=== PATIENT | male | born 1980 | race Caucasian/White ===

== ENCOUNTER 2021-09-26 23:30 | Emergency (ER) | payer BC, MEDICAID, SELFPAY ==
--- NOTE | 2021-09-26 23:25 | ECG_ITS ---
APPROVED REPORT Exam: Resting ECG HR:93 bpm ECG Measurements Heart Rate 93 AXES TN 128 P 24 QRSd 96 QRS 11 QT 354 T 49 QTc 440 Conclusion Normal sinus rhythm Normal ECG Electronically signed by : Elie Rojas MD 09/27/2021 19:55:09
[2021-09-26 23:30] VITALS: BP 136/89; PULSE 93; RESP 16; TEMP 36.8; O2SAT 96; BMI 40.6
[2021-09-26 23:31] VITALS: BMI 40.6
--- NOTE | 2021-09-26 23:32 | XR_ITS ---
PROCEDURE INFORMATION: Exam: XR Chest Exam date and time: 09/26/2021 11:32 PM Age: 41 years old Clinical indication: Sternal or substernal pain; Additional info: Cp TECHNIQUE: Imaging protocol: XR of the chest. Views: 2 views. COMPARISON: No relevant prior studies available. FINDINGS: Lungs: Unremarkable. No consolidation. Pleural spaces: Unremarkable. No pleural effusion. No pneumothorax. Heart/Mediastinum: Unremarkable. No cardiomegaly. Bones/joints: Unremarkable. IMPRESSION: No acute findings.
[2021-09-26 23:47] LABS: Basophils # 0.3 K/mm3 (0-0.2); Basophils % 2.2 % (0.1-2.0); Eosinophils # 0.1 K/mm3 (0.0-0.4); Eosinophils % 0.8 % (0.1-12.0); Hematocrit 46.5 % (42.0-52.0); Lymphocytes # 4.1 K/mm3 (0.7-4.5); Lymphocytes % 32.9 % (10-50); Mean Corpuscular HGB Conc 32.2 g/dL (31.8-35.4); Mean Corpuscular Hemoglobin 28.1 pg (27.0-31.2); Mean Corpuscular Volume 87.2 fl (80-94); Mean Platelet Volume 8.8 fl (7.4-10.4); Monocytes # 0.6 K/mm3 (0.1-1.0); Monocytes % 4.6 % (1.7-9.3); Neutrophils # 7.4 K/mm3 (1.8-7.8); Neutrophils % 59.5 % (37.0-80.0); Platelet Count 337 K/mm3 (142-424); Red Blood Count 5.33 M/mm3 (4.60-6.20); Red Cell Distribution Width 14.2 % (11.5-17.5); White Blood Count 12.3 K/mm3 (4.8-10.8)
[2021-09-26 23:51] LABS: Chloride 100 mmol/L (98-107); Sodium 139 mmol/L (136-145)
[2021-09-26 23:52] LABS: Potassium 3.8 mmoL/L (3.5-5.1)
[2021-09-26 23:54] LABS: Coronavirus 19, PCR Not Detected (NotDetected); Influenza A, PCR Not Detected (NotDetected); Influenza B, PCR Not Detected (NotDetected)
[2021-09-26 23:54] LABS: Alanine Aminotransferase 37 U/L (12-78); Alkaline Phosphatase 70 U/L (38-126); Anion Gap 12.8 mEq/L (5-15); Aspartate Amino Transferase 31 U/L (17-59); Bilirubin,Direct 0.2 mg/dl (0.0-0.4); Bilirubin,Indirect 0.1 mg/dL (0.0-0.9); Bilirubin,Total 0.3 mg/dl (0.2-1.3); Bilirubin,Unconjugated 0.1 mg/dL (0.0-1.1); Blood Urea Nitrogen 22 mg/dl (9-20); Carbon Dioxide 30 mmol/L (22.0-30.0); Creatinine Clearance Estimated 183 mL/min (50-200); Estimated Glomerular Filt Rate 82 ml/min (>60); GFR (African American) 99 ML/MIN (>60)
[2021-09-26 23:55] LABS: Albumin Level 4.8 g/dl (3.5-5.0); Calcium 9.8 mg/dl (8.4-10.2); Glucose 163 mg/dl (74-100); Total Protein,Serum 8.4 g/dl (6.3-8.2)
[2021-09-26 23:59] LABS: C-Reactive Protein 13.6 mg/L (0-4)
[2021-09-27] VITALS: BP 113/80; PULSE 96; RESP 14; O2SAT 95
[2021-09-27 00:04] LABS: NT Pro Brain Natriuretic Pep. < 11.1 pg/mL (0-125)
[2021-09-27 00:12] LABS: Troponin I < 0.01 ng/ml (0.00-0.034)
[2021-09-27 00:13] LABS: Procalcitonin 0.076 ng/mL (0.0-2.0)
[2021-09-27 00:18] LABS: Erythrocyte Sedimentation Rate 8 mm/hr (0-15)
--- NOTE | 2021-09-27 00:56 | HMH.EDCP ---
ED Disposition Clinical Impression: Chest pain Qualifiers: Chest pain type: unspecified Qualified Code(s): R07.9 - Chest pain, unspecified Disposition: Home, Self-Care Condition on Discharge: Good Instructions: DI for Atypical Chest Pain Additional Instructions: see pcp for follow up and consider stress test Referrals: Bro Aviles [Primary Care Provider] - - Critical Care Critical Care Time: No Attestation: On 09/26/21, the high probability of a clinically significant, sudden or life threatening deterioration of the following system(s) required my full and direct attention, intervention and personal management. The time I documented below is in addition to time spent performing reported procedures but includes the following listed in this critical care notation. Medical Decision Making - Medical Records Medical records reviewed: Yes: I reviewed the patient's medical records. - Stef Inquiry Pt receiving controlled substance: No Vital Signs: 09/26/21 23:30 09/27/21 00:00 Temperature 98.3 F Temperature Source Oral Pulse Rate 96 H Pulse Rate [Right] 93 H Respiratory Rate 16 14 Blood Pressure 113/80 Blood Pressure [Right Arm] 136/89 Blood Pressure Mean [Right Arm] 104 02 Sat by Pulse Oximetry 96 95 Oxygen Delivery Method Room Air - Lab Data Lab results reviewed: Yes: I reviewed the patient's lab results. Lab Results 09/26/21 23:30: ESR 8 09/26/21 23:30: Troponin I < 0.01, C-Reactive Protein 13.6 H, Procalcitonin 0.076 09/26/21 23:30: WBC 12.3 H, RBC 5.33, Hgb 15.0, Hct 46.5, MCV 87.2, MCH 28.1, MCHC 32.2, RDW 14.2, Plt Count 337, MPV 8.8, Neut % (Auto) 59.5, Lymph % (Auto) 32.9, Ada % (Auto) 4.6, Eos % (Auto) 0.8, Baso % (Auto) 2.2 H, Neut # (Auto) 7.4, Lymph # (Auto) 4.1, Ada # (Auto) 0.6, Eos # (Auto) 0.1, Baso # (Auto) 0.3 H 09/26/21 23:30: Sodium 139, Potassium 3.8, Chloride 100, Carbon Dioxide 30, Anion Gap 12.8, BUN 22 H, Creatinine 1.00, Estimated Creat Clear 183, Estimated GFR 82, Est GFR ( Amer) 99, Glucose 163 H, Calcium 9.8, Total Bilirubin 0.3, Direct Bilirubin 0.2, Conjugated Bilirubin 0.0, Indirect Bilirubin 0.1, Unconjugated Bilirubin 0.1, AST 31, ALT 37, Alkaline Phosphatase 70, NT-Pro-B Natriuret Pep < 11.1, Total Protein 8.4 H, Albumin 4.8 09/26/21 23:40: SARS-CoV-2 (PCR) Not detected, Influenza A Untype (PCR) Not detected, Influenza Type B (PCR) Not detected Result diagrams: 09/26/21 23:30 09/26/21 23:30 Orders (Tests/Meds): ED MEDICATIONS Generic Name Dose Route Start Last Admin Trade Name Freq PRN Reason Stop Dose Admin Sodium Chloride 1,000 mls @ 999 mls/hr 09/26/21 23:45 09/26/21 23:46 Sod Chlor 0.9% 1000ml Bag IV 09/27/21 00:45 999 mls/hr .Q1H1M LANDEN Administration Discontinued Medications Generic Name Dose Route Start Last Admin Trade Name Freq PRN Reason Stop Dose Admin Acetaminophen 1,000 mg 09/27/21 00:31 09/27/21 00:37 Acetaminophen 500mg Tab PO 09/27/21 00:32 1,000 mg ONCE ONE Administration Aspirin 324 mg 09/26/21 23:37 09/26/21 23:46 Aspirin 81mg Chewable Tablet PO 09/26/21 23:38 324 mg ONCE ONE Administration ORDERS Category Date Time Status Troponin I Q3H Lab 09/27/21 02:45 Ordered Troponin I Q3H Lab 09/27/21 05:45 Ordered - Radiology Data #1 Image(s): Chest Image Reviewed: Yes I have reviewed radiologist's interpretation Preliminary Findings: Normal/NAD - ECG Data Tracing #1 Normal Sinus Rhythm: Yes Ischemic changes: non-specific ST-T wave changes Medical Decision Narrative: feeling ok and has stable exam and labs will ask pt to call obesity dr and also pcp for stress test Chest Pain HPI - General Chief Complaint: Chest Pain Stated Complaint: CP Time Seen by Provider: 09/27/21 00:00 Mode of Arrival: Ambulatory Source of Information: Patient, Medical Record Limitations: No Limitations Description of Symptoms (Recalled from ER Triage Doc. by RN): pt c/o being
--- NOTE | 2021-09-27 01:05 | PC.NURSE ---
Dr. Arnold s/w Dr. Moses
[2021-09-27 01:12] VITALS: BP 135/90; PULSE 78; RESP 18; TEMP 36.8; O2SAT 98
[2021-09-27 01:14] VITALS: BP 135/99; PULSE 90; RESP 16; TEMP 36.8; O2SAT 95
== END 2021-09-27 01:24 | disposition home or self-care (01) ==
PROVIDERS: Emergency Provider Emergency Medicine; PCP Family Medicine
DX: R07.9 Chest pain, unspecified (principal); Z20.822 Contact with and (suspected) exposure to COVID-19; I10 Essential (primary) hypertension; Z88.0 Allergy status to penicillin
CPT/HCPCS: 71046; 80048; 80076; 83880; 84145; 84484; 85025; 85651; 86140; 93005; 96365; 99283; C9803; U0003; U0005

== ENCOUNTER 2021-10-17 09:33 | Emergency (ER) | payer BC, MEDICAID, SELFPAY ==
[2021-10-17 09:34] VITALS: BP 134/101; PULSE 80; RESP 16; TEMP 37.1; O2SAT 97; BMI 39.5
[2021-10-17 10:01] VITALS: BMI 39.5
[2021-10-17 10:14] VITALS: BP 134/101; PULSE 72; O2SAT 96
[2021-10-17 10:30] VITALS: BP 133/101; PULSE 67; O2SAT 97
--- NOTE | 2021-10-17 10:55 | HMH.EDHA ---
ED Disposition Clinical Impression: Migraine Qualifiers: Migraine type: unspecified Status migrainosus presence: without status migrainosus Intractability: not intractable Qualified Code(s): G43.909 - Migraine, unspecified, not intractable, without status migrainosus Disposition: Home, Self-Care Condition on Discharge: Good Additional Instructions: follow up pcp, return for worse Prescriptions: Prochlorperazine Maleate [Compazine] 10 mg PO Q8 PRN #15 tab PRN Reason: Headache Transmission Status: [id number] Referrals: Bro Aviles [Primary Care Provider] - - Critical Care Critical Care Time: No Attestation: On 10/17/21, the high probability of a clinically significant, sudden or life threatening deterioration of the following system(s) required my full and direct attention, intervention and personal management. The time I documented below is in addition to time spent performing reported procedures but includes the following listed in this critical care notation. Medical Decision Making - Medical Records Medical records reviewed: Yes: I reviewed the patient's medical records. - Stef Inquiry Pt receiving controlled substance: No Vital Signs: 10/17/21 09:34 10/17/21 10:14 10/17/21 10:30 Temperature 98.8 F Temperature Source Oral Pulse Rate 72 67 Pulse Rate [Right Radial] 80 Respiratory Rate 16 Blood Pressure 134/101 H 133/101 H Blood Pressure [Right Arm] 134/101 H Blood Pressure Mean [Right Arm] 112 Blood Pressure Source [Right Arm] Automatic Cuff Blood Pressure Position [Right Arm] Sitting 02 Sat by Pulse Oximetry 97 96 97 Oxygen Delivery Method Room Air Orders (Tests/Meds): ED MEDICATIONS Discontinued Medications Generic Name Dose Route Start Last Admin Trade Name Freq PRN Reason Stop Dose Admin Acetaminophen 1,000 mg 10/17/21 10:55 10/17/21 11:04 Acetaminophen 500mg Tab PO 10/17/21 10:56 1,000 mg ONCE ONE Administration Ketorolac Tromethamine 30 mg 10/17/21 10:24 10/17/21 11:04 Ketorolac 30mg/Ml Vial IV 10/17/21 10:25 30 mg ONCE ONE Administration Metoclopramide HCl 10 mg 10/17/21 10:55 10/17/21 11:05 Metoclopramide Hcl 10mg/2ml Vial IVP 10/17/21 10:56 10 mg ONCE ONE Administration Ondansetron HCl 4 mg 10/17/21 10:24 10/17/21 11:04 Ondansetron 4mg/2ml Vial IV 10/17/21 10:25 4 mg ONCE ONE Administration Medical Decision Narrative: reeval, neuro intact, feels better, appears well, ok with plan to rx and f/u pcp Headache HPI - General Chief Complaint: Headache Stated Complaint: migraine Time Seen by Provider: 10/17/21 10:30 Mode of Arrival: Ambulatory Limitations: No Limitations Description of Symptoms (Recalled from ER Triage Doc. by RN): Pt c/o migraine with light sensativity and nausea. Onset approx 1900 last night - History of Present Illness HPI Narrative: c/o migraine sim to prior frontal, assoc with nausea and light sens MD Complaint: migraine Location: frontal Severity: moderate Relieving factors: dark room Exacerbating factors: light Associated symptoms: nausea - Related Data Home Medications Medication Instructions Recorded Confirmed Certolizumab Pegol [Cimzia] 400 mg SQ DIRECTED 09/27/21 09/27/21 Lisinopril/Hydrochlorothiazide 1 tab PO DAILY 09/27/21 09/27/21 [Lisinopril-Hctz 20-12.5 mg Tab*] Testosterone Cypionate 200 mg SQ DIRECTED 09/27/21 09/27/21 Previous Rx's Medication Instructions Recorded Prochlorperazine Maleate 10 mg PO Q8 PRN #15 tab 10/17/21 [Compazine] Allergies Allergy/AdvReac Type Severity Reaction Status Date / Time Penicillins Allergy Verified 09/26/21 23:31 [facility] History - Hepatitis A Screen Drug use history?: No High risk sexual behaviors?: No History of sexually transmitted infection?: No Currently employed?: No Childcare worker?: No Do you have indoor plumbing?: Yes Do you have electricity?: Yes Attes
[2021-10-17 11:32] VITALS: BP 163/110; PULSE 82; RESP 18; TEMP 37.1; O2SAT 97
== END 2021-10-17 11:35 | disposition home or self-care (01) ==
PROVIDERS: Emergency Provider Emergency Medicine; PCP Family Medicine
DX: G43.909 Migraine, unspecified, not intractable, without status migrainosus (principal)
CPT/HCPCS: 96374; 96375; 99282; J2405

== ENCOUNTER 2022-03-15 12:26 | Emergency (ER) | payer OTHER, SELFPAY ==
[2022-03-15 12:27] VITALS: BP 151/95; PULSE 80; RESP 18; TEMP 36.7; O2SAT 98; BMI 39.5
--- NOTE | 2022-03-15 12:52 | XR_ITS ---
FINAL REPORT CLINICAL HISTORY: injury the right hip a couple days ago. still having pain. FINDINGS: 2 views of the right hip and an AP pelvis were obtained. There is no acute fracture or dislocation. There is mild degenerative change of the right hip. There are no soft tissue abnormalities. IMPRESSION: No acute process. Reviewed, Interpreted and Dictated by Dusty Duff III, MD Transcribed by [facility] Authenticated and [facility]
--- NOTE | 2022-03-15 12:59 | PC.NURSE ---
notified rad of xray order, spoke with shayan
--- NOTE | 2022-03-15 13:04 | HMH.EDGENADL ---
ED Disposition Clinical Impression: Strain of right hip Qualifiers: Encounter type: initial encounter Qualified Code(s): S76.011A - Strain of muscle, fascia and tendon of right hip, initial encounter Disposition: Home, Self-Care Condition on Discharge: Good Instructions: DI for Hip Pain Additional Instructions: Rest. Prednisone as prescribed. Linden as needed for pain. Follow-up with orthopedics if not improved by Sunday. Additional instructions for CONTROLLED SUBSTANCES: You have been prescribed a medication that is a controlled substance. Controlled substances include pain medications known as opiates and sedative nerve medications known as benzodiazepines. Tramadol, fioricet, and gabapentin are also controlled substances. Some common opiates include: Codeine (such as Tylenol #3) Hydrocodone (Vicodin, Lortab, Lorcet, Linden) Oxycodone (Percocet, Percodan, Oxycodone, Oxy IR) Some common benzodiazepines include: Diazepam (Valium) Lorazepam (Ativan) Alprazolam (Xanax) Clonazepam (Klonopin) Oxazepam (Serax) All of these controlled substances are highly addictive and frequently abused. Misuse can and frequently does lead to addiction as well as overdose and . Medication should be stored in a locked cabinet or other secure storage unit. Do not store the medication in a motor vehicle. Short term supplies, 3 days or less, are prescribed because of the highly addictive nature of the medication. Any of the controlled substance medication NOT taken should be disposed of properly and NOT SAVED. The recommended method of disposing of unused medications is: Place the medicines in a sealable plastic bag. If the medicine is a solid, crush it or add water to dissolve it. Add something undesirable (cat litter, coffee grounds, etc.) Dispose of sealed bag in household trash Do not flush or pour unused medicines down a sink or drain. Controlled substances should not be shared, given away or sold. Because of the addictive nature and frequent abuse, these medications are sometimes stolen. These medications should be kept in a safe place where they cannot be stolen. Do not keep them in your car or purse. Lost or stolen prescriptions for controlled substances WILL NOT BE REFILLED in this emergency department, regardless of whether a police report was filed. Prescriptions: Hydrocod/Acet 5/325 mg [Linden 5/325mg tablet] 1 tab PO Q6HP PRN #10 tab PRN Reason: Pain Transmission Status: [id number] predniSONE [Prednisone 20mg Tab] 20 mg PO BID #10 tab Transmission Status: Re[facility] by [id number] Referrals: Bro Aviles [Primary Care Provider] - Forms: Work/School Release - Critical Care Critical Care Time: No Attestation: On 03/15/22, the high probability of a clinically significant, sudden or life threatening deterioration of the following system(s) required my full and direct attention, intervention and personal management. The time I documented below is in addition to time spent performing reported procedures but includes the following listed in this critical care notation. Medical Decision Making - Stef Inquiry Pt receiving controlled substance: Yes Stef was queried for this patient: Yes Risks and benefits of using a controlled substance: were discussed with pt by me Vital Signs: 03/15/22 12:27 Temperature 98.0 F Temperature Source Oral Pulse Rate [Right Radial] 80 Respiratory Rate 18 Blood Pressure [Right Arm] 151/95 H Blood Pressure Mean [Right Arm] 113 Blood Pressure Source [Right Arm] Automatic Cuff Blood Pressure Position [Right Arm] Sitting 02 Sat by Pulse Oximetry 98 Oxygen Delivery Method Room Air Orders (Tests/Meds): ED MEDICATIONS Discontinued Medications Generic Name Dose Route Start Last Admin Trade Name Freq PRN Reason Stop Dose Admin Dexamethasone Sodium Phosphate 10 mg 03/15/22 13:30 03/15/22 14:03 Dexamethasone 4mg/M
--- NOTE | 2022-03-15 13:04 | PC.NURSE ---
pt in xray
--- NOTE | 2022-03-15 13:10 | PC.NURSE ---
BARRERA SY at
--- NOTE | 2022-03-15 14:13 | PC.NURSE ---
waiting shot time for pt d/c
--- NOTE | 2022-03-15 14:42 | PC.NURSE ---
awaiting workmans comp paperwork filled out by
[2022-03-15 15:00] VITALS: BP 142/87; PULSE 84; RESP 18; TEMP 36.7; O2SAT 99
== END 2022-03-15 15:01 | disposition home or self-care (01) ==
PROVIDERS: Emergency Provider Emergency Medicine; PCP Family Medicine
DX: S76.011A Strain of muscle, fascia and tendon of right hip, initial encounter (principal); Y35.811A Legal intervention involving manhandling, law enforcement official injured, initial encounter; Y92.69 Other specified industrial and construction area as the place of occurrence of the external cause; Y99.0 Civilian activity done for income or pay
CPT/HCPCS: 73502; 96372; 99283; J2405

== ENCOUNTER 2022-08-12 19:17 | Emergency (ER) | payer BC, MEDICAID, SELFPAY ==
[2022-08-12 19:37] VITALS: BP 167/106; PULSE 106; RESP 18; TEMP 36.7; O2SAT 97; BMI 39.5
--- NOTE | 2022-08-12 19:50 | XR_ITS ---
PROCEDURE INFORMATION: Exam: XR Bilateral Hips Exam date and time: 08/12/2022 7:56 PM Age: 42 years old Clinical indication: Hip pain; Right hip; Additional info: Hip pain right side TECHNIQUE: Imaging protocol: Radiologic exam of the bilateral hips. Views: 2 views of hips with pelvis when performed. COMPARISON: No relevant prior studies available. FINDINGS: Bones/joints: No fracture. Hip joints are well aligned. Hip joint spaces and articular surfaces are grossly well-maintained, with minimal superolateral acetabular spurring on the right. No radiographic evidence to suggest transient osteoporosis or avascular necrosis. Somewhat ill-defined 13 mm osteoblastic lesion projecting over the central medullary space in the subtrochanteric distribution of the right proximal femur. This is unchanged from right hip radiograph 03/15/2022, which would tend to favor an incidental bone island or possibly an involuted fibro-osseous lesion such as fibrous dysplasia. Bone scan or MRI may be helpful to further confirm benign features given the persistent right hip pain symptoms. The SI joints are unremarkable. The pubic symphysis is unremarkable. Soft tissues: No gross soft tissue abnormalities. Other findings: No gross sacrococcygeal abnormalities. IMPRESSION: 1. No acute findings. 2. Minimal osteoarthritic change in the right hip. 3. Somewhat ill-defined 13 mm intramedullary bone lesion in the subtrochanteric right femur is unchanged and given the interval stability a benign lesion is favored. Bone scan or MRI may be helpful to further confirm benign features with greater sensitivity/specificity however given the persistent hip pain symptoms.
[2022-08-12 20:27] LABS: Basophils # 0.3 K/mm3 (0-0.2); Basophils % 1.5 % (0.1-2.0); Eosinophils # 0.2 K/mm3 (0.0-0.4); Hematocrit 48.7 % (42.0-52.0); Hemoglobin 16.1 g/dL (14.1-18.0); Lymphocytes # 4.9 K/mm3 (0.7-4.5); Lymphocytes % 29.4 % (10-50); Mean Corpuscular Hemoglobin 29.5 pg (27.0-31.2); Mean Corpuscular Volume 89.4 fl (80-94); Mean Platelet Volume 8.6 fl (7.4-10.4); Monocytes # 0.8 K/mm3 (0.1-1.0); Monocytes % 4.8 % (1.7-9.3); Neutrophils # 10.4 K/mm3 (1.8-7.8); Neutrophils % 63.3 % (37.0-80.0); Platelet Count 316 K/mm3 (142-424); Red Blood Count 5.45 M/mm3 (4.60-6.20); Red Cell Distribution Width 13.9 % (11.5-17.5); White Blood Count 16.5 K/mm3 (4.8-10.8)
[2022-08-12 20:34] LABS: Chloride 102 mmol/L (98-107); Sodium 135 mmol/L (136-145)
[2022-08-12 20:35] LABS: MANUAL DIFFERENTIAL MANUAL DIFFERENTIAL (MANUAL DIFF); Potassium 3.7 mmoL/L (3.5-5.1)
[2022-08-12 20:37] LABS: Alanine Aminotransferase 33 U/L (12-78); Albumin Level 4.5 g/dl (3.5-5.0); Albumin/Globulin Ratio 1.4 (1.1-1.8); Alkaline Phosphatase 73 U/L (38-126); Anion Gap 10.7 mEq/L (5-15); Aspartate Amino Transferase 27 U/L (17-59); Bilirubin,Total 0.3 mg/dl (0.2-1.3); Blood Urea Nitrogen 22 mg/dl (9-20); Carbon Dioxide 26 mmol/L (22.0-30.0); Creatinine Clearance Estimated 181 mL/min (50-200); Estimated Glomerular Filt Rate 81 ml/min (>60); GFR (African American) 98 ML/MIN (>60); Globulin 3.2 g/dL (1.3-3.2); Total Protein,Serum 7.7 g/dl (6.3-8.2)
[2022-08-12 20:38] LABS: Calcium 10.1 mg/dl (8.4-10.2); Glucose 224 mg/dl (74-100)
[2022-08-12 20:43] LABS: C-Reactive Protein 11.9 mg/L (0-4); Lymphocytes % 21 % (10-50); Monocytes % 6 % (2-9); Neutrophils % 68 % (42-76); Platelet Estimate Normal; RBC Morphology Normal; Total Cells Counted 100
[2022-08-12 21:03] LABS: Erythrocyte Sedimentation Rate 3 mm/hr (0-15)
--- NOTE | 2022-08-12 21:21 | HMH.EDGENADL ---
Discharge Plan Disposition Patient Disposition: Home, Self-Care Prescriptions Prescriptions: New prednisone [prednisone] 20 mg tablet 20 mg PO BID Qty: 10 0RF No Action lisinopril-hydrochlorothiazide 1 EACH tablet 1 tab PO DAILY testosterone cypionate 200 MG/ML oil 200 mg SQ DIRECTED certolizumab pegol 400 MG/2 ML syringe kit 400 mg SQ DIRECTED prochlorperazine maleate 10 MG tablet 10 mg PO Q8 PRN (Reason: Headache) Qty: 15 0RF hydrocodone-acetaminophen 1 TAB tablet 1 tab PO Q6HP PRN (Reason: Pain) Qty: 10 0RF Referrals Follow up/Referrals: Bro Aviles [Primary Care Provider] - See instructions Clinical Impressions Clinical Impression: Arthralgia Instructions Patient Instructions: DI for Acute Pain -- Adult Discharge ED Provider: Jose Arnold General Adult HPI General Chief complaint: PAIN Stated complaint: BOTH HIPS Time Seen by Provider: 08/12/22 21:21 Mode of Arrival: Ambulatory Source of Information: Patient and Medical Record Limitations: No Limitations Description of Symptoms (Recalled from ER Triage Doc. by RN): Pt c/o bilateral hip pain that began this morning. Pt states that he has a history of psoriatic arthritis but this pain is more severe than usual. C/O knot to his left hip area. Pain radiates into his groin and he is having difficulty lifting his legs without severe pain. History of Present Illness HPI narrative: has inner thigh pain bilat worse with mov since this am - has hip pain rt greater than left w/o fever or rash and no trauma - hx of same and has hx of psoriatic arthritis - Onset (ago): hour(s) Location: genitals (inner groin ) Severity: moderate Associated symptoms: denies other symptoms Related Data Home Medications Medication Instructions Recorded Confirmed certolizumab pegol 400 mg/2 mL 400 mg SQ DIRECTED Arthritis 09/27/21 09/27/21 (200 mg/mL x2) subcutaneous syringe kit lisinopril 20 1 tab PO DAILY High blood pressure 09/27/21 09/27/21 mg-hydrochlorothiazide 12.5 mg tablet testosterone cypionate 200 mg/mL 200 mg SQ DIRECTED Supplement 09/27/21 09/27/21 intramuscular oil Previous Rx's Medication Instructions Recorded prochlorperazine maleate 10 mg 10 mg PO Q8 PRN Headache #15 tabs 02/07/22 tablet hydrocodone 5 mg-acetaminophen 325 1 tab PO Q6HP PRN Pain #10 tabs 03/15/22 mg tablet prednisone 20 mg tablet 20 mg PO BID #10 tabs 08/12/22 Allergies Allergy/AdvReac Type Severity Reaction Status Date / Time Penicillins Allergy Verified 08/12/22 21:32 [facility] Disclaimer: The information contained in this section may have been updated after the patient was seen, as this information can be updated by other users. Social History Smoking Status: Never smoker alcohol intake: never current occupational status: employed Travel in the last 8 weeks: None ROS Obtained: Yes All systems reviewed & no additional complaints except as documented Physical Exam General General appearance: alert Head Head exam: normocephalic Eye Eye exam: Present PERRL and EOMI ENT ENT exam: Present mucous membranes moist Neck Neck exam: Present trachea midline Respiratory Respiratory exam: Absent respiratory distress Cardiovascular Cardiovascular exam: Present regular rate Extremities Exam Extremities exam: Present normal inspection and other (pain inner thigh with rom ) Back Exam Back exam: Absent full ROM Neurological Exam Neurological exam: Present alert, oriented X3 and CN II-XII intact Psychiatric Psychiatric exam: Present normal affect Skin Skin exam: Absent rash Medical Decision Making Medical Records Medical records reviewed: Yes I reviewed the patient's medical records. Stef Inquiry Pt receiving controlled substance: No Vital Signs: 08/12/22 19:37 Temperature 98.0 F Temperature Source Oral Pulse Rate [Apical] 106 H Respiratory Rate 18 Blood Pressure [Right Arm] 1
[2022-08-12 21:42] VITALS: BP 167/106; PULSE 106; RESP 18; TEMP 36.7; O2SAT 97
[2022-08-12 21:45] LABS: Hemoglobin A1C 7.6 % (4.0-6.0)
== END 2022-08-12 21:45 | disposition home or self-care (01) ==
PROVIDERS: Emergency Provider Emergency Medicine; PCP Family Medicine
DX: M25.552 Pain in left hip (principal); M25.551 Pain in right hip; L40.50 Arthropathic psoriasis, unspecified; Z79.52 Long term (current) use of systemic steroids; Z79.899 Other long term (current) drug therapy
CPT/HCPCS: 73521; 80053; 83036; 85007; 85025; 85651; 86140; 96372; 99284

== ENCOUNTER 2022-09-24 10:21 | Emergency (ER) | payer OTHER, MEDICAID, SELFPAY ==
--- NOTE | 2022-09-24 10:28 | EXP.UTC ---
Discharge Plan Disposition Patient Disposition: Home, Self-Care Condition: Good Prescriptions Prescriptions: New benzonatate [benzonatate] 100 mg capsule 100 mg PO TIDP PRN (Reason: Cough) Qty: 30 0RF methylprednisolone 4 mg Tablets,Dose Pack 4 mg PO DIRECTED Qty: 21 0RF cefdinir 300 mg capsule 300 mg PO BID Qty: 20 0RF No Action lisinopril-hydrochlorothiazide 1 EACH tablet 1 tab PO DAILY testosterone cypionate 200 MG/ML oil 200 mg SQ DIRECTED certolizumab pegol 400 MG/2 ML syringe kit 400 mg SQ DIRECTED prochlorperazine maleate 10 MG tablet 10 mg PO Q8 PRN (Reason: Headache) Qty: 15 0RF hydrocodone-acetaminophen 1 TAB tablet 1 tab PO Q6HP PRN (Reason: Pain) Qty: 10 0RF hydroxyzine HCl 25 mg tablet 25 mg PO DAILY Label Comments: TAKE 1 TABLET BY MOUTH NIGHTLY Farxiga 10 mg tablet 10 mg PO DAILY Label Comments: TAKE 1 TABLET BY MOUTH EVERY DAY prednisone [prednisone] 20 mg tablet 20 mg PO BID Referrals Follow up/Referrals: Bro Aviles [Primary Care Provider] - See instructions Activity Restrictions/Add. Instructions Additional Instructions/Restrictions: Drink plenty of fluids. Take tylenol or ibuprofen for pain or fever. Take the medications as directed. Follow up with your regular doctor. GO TO THE ER FOR ANY WORSENING SYMPTOMS Clinical Impressions Clinical Impression: Acute bronchitis Instructions Patient Instructions: Acute Bronchitis, DI for Acute Bronchitis Discharge ED Provider: Micheal Crews [facility] HPI General Stated complaint: SOA, congestion Time Seen by Provider: 09/24/22 10:28 History of Present Illness Provider Complaint: He states that for the past 4 days he has had chest and sinus congestion. He has a productive cough with yellowish sputum. Related Data Home Medications Medication Instructions Recorded Confirmed certolizumab pegol 400 mg/2 mL 400 mg SQ DIRECTED Arthritis 09/27/21 09/24/22 (200 mg/mL x2) subcutaneous syringe kit lisinopril 20 1 tab PO DAILY High blood pressure 09/27/21 09/24/22 mg-hydrochlorothiazide 12.5 mg tablet testosterone cypionate 200 mg/mL 200 mg SQ DIRECTED Supplement 09/27/21 09/27/21 intramuscular oil dapagliflozin 10 mg tablet 10 mg PO DAILY Diabetes 09/24/22 09/24/22 ([facility]) hydroxyzine HCl 25 mg tablet 25 mg PO DAILY Diabetes 09/24/22 09/24/22 prednisone 20 mg tablet 20 mg PO BID . 09/24/22 09/24/22 Previous Rx's Medication Instructions Recorded prochlorperazine maleate 10 mg 10 mg PO Q8 PRN Headache #15 tabs 10/17/21 tablet hydrocodone 5 mg-acetaminophen 325 1 tab PO Q6HP PRN Pain #10 tabs 03/15/22 mg tablet benzonatate 100 mg capsule 100 mg PO TIDP PRN Cough #30 caps 09/24/22 cefdinir 300 mg capsule 300 mg PO BID #20 caps 09/24/22 methylprednisolone 4 mg tablets in 4 mg PO DIRECTED #21 tabs 09/24/22 a dose pack Allergies Allergy/AdvReac Type Severity Reaction Status Date / Time Penicillins Allergy Verified 09/24/22 10:50 [facility] Disclaimer: The information contained in this section may have been updated after the patient was seen, as this information can be updated by other users. Social History Smoking Status: Never smoker alcohol intake: never current occupational status: employed Travel in the last 8 weeks: None ROS Obtained: Yes All systems reviewed & no additional complaints except as documented Constitutional Constitutional: Reports chills and Reports fever(s) Eyes Eyes: Denies eye discharge ENT Ears, Nose, Mouth, and Throat: Reports as per HPI Cardiovascular Cardiovascular: Denies chest pain Respiratory Respiratory: Denies chest congestion and Reports cough Gastrointestinal Gastrointestingal: Reports nausea; Denies abdominal pain, constipation, cramping, diarrhea or vomiting Musculoskeletal Musculoskeletal: De
[2022-09-24 10:30] VITALS: BP 143/93; PULSE 101; RESP 19; TEMP 36.7; O2SAT 98; BMI 36.9
[2022-09-24 11:24] VITALS: BP 143/93; PULSE 101; RESP 20; TEMP 36.7; O2SAT 98
== END 2022-09-24 11:23 | disposition home or self-care (01) ==
PROVIDERS: Emergency Provider Nurse Practitioner Family; PCP Family Medicine
DX: J20.9 Acute bronchitis, unspecified (principal)
CPT/HCPCS: 99212; 99213; G0463

== ENCOUNTER 2022-10-05 22:04 | Emergency (ER) | payer OTHER, MEDICAID, SELFPAY ==
[2022-10-05 22:05] VITALS: BP 164/98; PULSE 79; RESP 16; TEMP 36.6; O2SAT 98; BMI 35.6
[2022-10-05 22:22] VITALS: BMI 35.6
--- NOTE | 2022-10-05 22:23 | CT_ITS ---
PROCEDURE INFORMATION: Exam: CT Head Without Contrast Exam date and time: 10/05/2022 10:34 PM Age: 42 years old Clinical indication: Pain; Patient HX: Headache x1 week; Additional info: TIM TECHNIQUE: Imaging protocol: Computed tomography of the head without contrast. Radiation optimization: All CT scans at this facility use at least one of these dose optimization techniques: automated exposure control; mA and/or kV adjustment per patient size (includes targeted exams where dose is matched to clinical indication); or iterative reconstruction. Other protocol: This patient has received 0 known CTs and 0 known cardiac nuclear medicine studies in the 12 months prior to the current study. COMPARISON: No relevant prior studies available. FINDINGS: Brain: Normal. No hemorrhage. Unremarkable white matter. No mass effect. Cerebral ventricles: No ventriculomegaly. Paranasal sinuses: Visualized sinuses are unremarkable. No fluid levels. Mastoid air cells: Visualized mastoid air cells are well aerated. Bones/joints: Unremarkable. No acute fracture. Soft tissues: Unremarkable. IMPRESSION: No acute intracranial abnormality.
[2022-10-05 22:33] LABS: Chloride 107 mmol/L (98-107); Potassium 3.8 mmoL/L (3.5-5.1); Sodium 140 mmol/L (136-145)
[2022-10-05 22:34] LABS: Basophils # 0.1 K/mm3 (0-0.2); Eosinophils # 0.1 K/mm3 (0.0-0.4); Eosinophils % 1.2 % (0.1-12.0); Hematocrit 47.8 % (42.0-52.0); Hemoglobin 15.7 g/dL (14.1-18.0); Lymphocytes # 2.6 K/mm3 (0.7-4.5); Lymphocytes % 21.7 % (10-50); Mean Corpuscular HGB Conc 32.9 g/dL (31.8-35.4); Mean Corpuscular Hemoglobin 29.2 pg (27.0-31.2); Mean Corpuscular Volume 88.9 fl (80-94); Mean Platelet Volume 8.6 fl (7.4-10.4); Monocytes # 0.5 K/mm3 (0.1-1.0); Monocytes % 3.9 % (1.7-9.3); Neutrophils # 8.6 K/mm3 (1.8-7.8); Neutrophils % 72.2 % (37.0-80.0); Platelet Count 264 K/mm3 (142-424); Red Blood Count 5.38 M/mm3 (4.60-6.20); Red Cell Distribution Width 14.1 % (11.5-17.5); White Blood Count 11.9 K/mm3 (4.8-10.8)
[2022-10-05 22:35] LABS: Blood Urea Nitrogen 14 mg/dl (9-20); Creatinine Clearance Estimated 181 mL/min (50-200); Estimated Glomerular Filt Rate 92 ml/min (>60); GFR (African American) 111 ML/MIN (>60)
[2022-10-05 22:36] LABS: Alanine Aminotransferase 110 U/L (12-78); Albumin Level 4.2 g/dl (3.5-5.0); Albumin/Globulin Ratio 1.4 (1.1-1.8); Alkaline Phosphatase 51 U/L (38-126); Anion Gap 9.8 mEq/L (5-15); Aspartate Amino Transferase 129 U/L (17-59); Bilirubin,Total 0.6 mg/dl (0.2-1.3); Calcium 8.7 mg/dl (8.4-10.2); Carbon Dioxide 27 mmol/L (22.0-30.0); Globulin 3.1 g/dL (1.3-3.2); Glucose 145 mg/dl (74-100); Total Protein,Serum 7.3 g/dl (6.3-8.2)
--- NOTE | 2022-10-06 00:04 | HMH.EDHA ---
Discharge Plan Disposition Patient Disposition: Home, Self-Care Chief Complaint: Headache Prescriptions Prescriptions: No Action lisinopril-hydrochlorothiazide 1 EACH tablet 1 tab PO DAILY testosterone cypionate 200 MG/ML oil 200 mg SQ DIRECTED certolizumab pegol 400 MG/2 ML syringe kit 400 mg SQ DIRECTED hydroxyzine HCl 25 mg tablet 25 mg PO DAILY Label Comments: TAKE 1 TABLET BY MOUTH NIGHTLY prazosin 1 mg Capsule 0.5 mg PO DAILY Referrals Follow up/Referrals: Bro Aviles [Primary Care Provider] - See instructions Clinical Impressions Clinical Impression: Headache, Hypertensive emergency Instructions Patient Instructions: DI for Headache Discharge ED Provider: Jose Arnold Headache HPI General Chief Complaint: Headache Stated Complaint: migraine Time Seen by Provider: 10/06/22 00:04 Mode of Arrival: Ambulatory Source of Information: Patient and Medical Record Limitations: No Limitations Description of Symptoms (Recalled from ER Triage Doc. by RN): pt c/o headache the pt reports a headache for the past 4 days tonight the pt states the pain was getting to the point of making him feel like he was going to vomit. the pt has a hx of headaches prior to blood pressure medication. pt states the headache is behind the eyes constant and feels like a 7/10 shooting pain to the back of his head. pt is sensitive to light but not sound History of Present Illness HPI Narrative: pt with acute headache over the last few days w/o fever/rash or trauma - pt with hx of mark and elevated bp MD Complaint: headache Onset (ago): hour(s) Location: diffuse Severity: moderate Quality: different than previous headaches Exacerbating factors: light and noise Associated symptoms: nausea Treatments prior to arrival: acetaminophen and ibuprofen Related Data Home Medications Medication Instructions Recorded Confirmed certolizumab pegol 400 mg/2 mL 400 mg SQ DIRECTED Arthritis 09/27/21 10/05/22 (200 mg/mL x2) subcutaneous syringe kit lisinopril 20 1 tab PO DAILY High blood pressure 09/27/21 10/05/22 mg-hydrochlorothiazide 12.5 mg tablet testosterone cypionate 200 mg/mL 200 mg SQ DIRECTED Supplement 09/27/21 10/05/22 intramuscular oil hydroxyzine HCl 25 mg tablet 25 mg PO DAILY Diabetes 09/24/22 10/05/22 prazosin 1 mg capsule 0.5 mg PO DAILY . 10/05/22 10/05/22 Allergies Allergy/AdvReac Type Severity Reaction Status Date / Time Penicillins Allergy Verified 09/24/22 10:50 [facility] History Hepatitis A Screen Attestation statement:: This patient has been screened for Hepatitis A risk factors. I have reviewed the patient's past medical history: Yes Social History Smoking Status: Never smoker Alcohol Intake: never Occupational Status: employed [employer] Disclaimer: The information contained in this section may have been updated after the patient was seen, as this information can be updated by other users. Social History Smoking Status: Never smoker alcohol intake: never current occupational status: employed Travel in the last 8 weeks: None ROS Obtained: Yes All systems reviewed & no additional complaints except as documented Physical Exam General General appearance: alert and obese Head Head exam: normocephalic Eye Eye exam: Present PERRL and EOMI ENT ENT exam: Present mucous membranes moist Neck Neck exam: Present trachea midline Respiratory Respiratory exam: Absent respiratory distress Cardiovascular Cardiovascular exam: Present regular rate Abdominal Exam Abdominal exam: Present soft Extremities Exam Extremities exam: Present full ROM Neurological Exam Neurological exam: Present alert, oriented X3 and CN II-XII intact; Absent motor sensory deficit Psychiatric Psychiatric exam: Present normal affect Skin Skin exam: Absent rash Medical Decision Making Medical Records [facility]
[2022-10-06 00:17] VITALS: BP 157/109; PULSE 79; RESP 18; TEMP 36.1; O2SAT 98
== END 2022-10-06 00:53 | disposition home or self-care (01) ==
PROVIDERS: Emergency Provider Emergency Medicine; PCP Family Medicine
DX: I16.1 Hypertensive emergency (principal); R51.9 Headache, unspecified
CPT/HCPCS: 70450; 80053; 85025; 96361; 96374; 96375; 99285; J0131; J2405

== ENCOUNTER 2022-10-28 06:40 | Emergency (ER) | payer OTHER, MEDICAID, SELFPAY ==
[2022-10-28 06:57] VITALS: BP 159/104; PULSE 95; RESP 18; TEMP 36.6; O2SAT 97; BMI 36.9
--- NOTE | 2022-10-28 07:18 | HMH.EDGENADL ---
Discharge Plan Disposition Patient Disposition: Home, Self-Care Prescriptions Prescriptions: New tizanidine [Zanaflex] 4 mg capsule 4 mg PO TID PRN (Reason: muscle spasticity) Qty: 30 0RF No Action lisinopril-hydrochlorothiazide 1 EACH tablet 1 tab PO DAILY testosterone cypionate 200 MG/ML oil 200 mg SQ DIRECTED certolizumab pegol 400 MG/2 ML syringe kit 400 mg SQ DIRECTED hydroxyzine HCl 25 mg tablet 25 mg PO DAILY Label Comments: TAKE 1 TABLET BY MOUTH NIGHTLY Referrals Follow up/Referrals: Bro Aviles [Primary Care Provider] - See instructions Clinical Impressions Clinical Impression: Arthralgia Instructions Patient Instructions: DI for Acute Pain -- Adult Discharge ED Provider: Catalina (ED)Jose General Adult HPI General Chief complaint: PAIN Stated complaint: bilateral leg pain; back of both arms pain Time Seen by Provider: 10/28/22 07:18 Mode of Arrival: Ambulatory Source of Information: Patient and Medical Record Limitations: No Limitations Description of Symptoms (Recalled from ER Triage Doc. by RN): Pt arrives via private vehicle. C/O bilateral posterior thigh/inner thigh pain and bilateral pain in his posterior forearms. Reports a hx of psoriatic arthritis for which he takes Cimzia injections (2 injections biweekly). States he took his injection a couple of days ago but it was late due to an insurance issue so he believes this stems from that problem. States that the pain began at 0100 Sunday morning when he woke up. Denies any known injury. History of Present Illness HPI narrative: acute mm pain in upper thigh and arms assoc with his meds and psoarsis Onset (ago): hour(s) Severity: moderate Associated symptoms: denies other symptoms Related Data Home Medications Medication Instructions Recorded Confirmed certolizumab pegol 400 mg/2 mL 400 mg SQ DIRECTED Arthritis 09/27/21 10/28/22 (200 mg/mL x2) subcutaneous syringe kit lisinopril 20 1 tab PO DAILY High blood pressure 09/27/21 10/28/22 mg-hydrochlorothiazide 12.5 mg tablet testosterone cypionate 200 mg/mL 200 mg SQ DIRECTED Supplement 09/27/21 10/28/22 intramuscular oil hydroxyzine HCl 25 mg tablet 25 mg PO DAILY Diabetes 09/24/22 10/28/22 Previous Rx's Medication Instructions Recorded tizanidine 4 mg capsule (Zanaflex) 4 mg PO TID PRN muscle spasticity 10/28/22 #30 caps Allergies Allergy/AdvReac Type Severity Reaction Status Date / Time Penicillins Allergy Verified 09/24/22 10:50 [facility] Disclaimer: The information contained in this section may have been updated after the patient was seen, as this information can be updated by other users. Social History Smoking Status: Never smoker alcohol intake: never current occupational status: employed Travel in the last 8 weeks: None ROS Obtained: Yes All systems reviewed & no additional complaints except as documented Physical Exam General General appearance: alert Head Head exam: normocephalic Eye Eye exam: Present PERRL and EOMI ENT ENT exam: Present mucous membranes moist Neck Neck exam: Present trachea midline Respiratory Respiratory exam: Absent respiratory distress Cardiovascular Cardiovascular exam: Present regular rate Extremities Exam Extremities exam: Present full ROM Neurological Exam Neurological exam: Present alert, oriented X3 and CN II-XII intact; Absent motor sensory deficit Psychiatric Psychiatric exam: Present normal affect Skin Skin exam: Absent rash Medical Decision Making Medical Records Medical records reviewed: Yes I reviewed the patient's medical records. Stef Inquiry Pt receiving controlled substance: No Vital Signs: 10/28/22 06:57 Temperature 97.8 F Temperature Source Oral Pulse Rate [Apical] 95 H Respiratory Rate 18 Blood Pressure [Right Arm] 159/104 H Blood Pressure Mean [Right Arm] 122
[2022-10-28 07:38] LABS: Basophils # 0.2 K/mm3 (0-0.2); Eosinophils % 0.3 % (0.1-12.0); Hematocrit 49.7 % (42.0-52.0); Hemoglobin 16.3 g/dL (14.1-18.0); Lymphocytes # 2.9 K/mm3 (0.7-4.5); Lymphocytes % 19.6 % (10-50); Mean Corpuscular HGB Conc 32.7 g/dL (31.8-35.4); Mean Corpuscular Hemoglobin 29.3 pg (27.0-31.2); Mean Corpuscular Volume 89.6 fl (80-94); Mean Platelet Volume 8.9 fl (7.4-10.4); Monocytes # 0.9 K/mm3 (0.1-1.0); Neutrophils # 10.8 K/mm3 (1.8-7.8); Neutrophils % 73.1 % (37.0-80.0); Platelet Count 323 K/mm3 (142-424); Red Blood Count 5.54 M/mm3 (4.60-6.20); White Blood Count 14.7 K/mm3 (4.8-10.8)
[2022-10-28 07:39] LABS: Chloride 105 mmol/L (98-107); Potassium 3.3 mmoL/L (3.5-5.1); Sodium 140 mmol/L (136-145)
[2022-10-28 07:42] LABS: Alanine Aminotransferase 31 U/L (12-78); Albumin Level 4.3 g/dl (3.5-5.0); Albumin/Globulin Ratio 1.4 (1.1-1.8); Alkaline Phosphatase 56 U/L (38-126); Anion Gap 10.3 mEq/L (5-15); Aspartate Amino Transferase 26 U/L (17-59); Bilirubin,Total 0.6 mg/dl (0.2-1.3); Blood Urea Nitrogen 15 mg/dl (9-20); Carbon Dioxide 28 mmol/L (22.0-30.0); Creatinine Clearance Estimated 188 mL/min (50-200); Estimated Glomerular Filt Rate 92 ml/min (>60); GFR (African American) 111 ML/MIN (>60); Total Protein,Serum 7.3 g/dl (6.3-8.2)
[2022-10-28 07:43] LABS: Calcium 8.6 mg/dl (8.4-10.2); Glucose 170 mg/dl (74-100)
[2022-10-28 07:49] VITALS: BP 145/98; PULSE 89; RESP 16; TEMP 36.6
[2022-10-28 08:03] LABS: Erythrocyte Sedimentation Rate 1 mm/hr (0-15)
== END 2022-10-28 07:52 | disposition home or self-care (01) ==
PROVIDERS: Emergency Provider Emergency Medicine; PCP Family Medicine
DX: M79.601 Pain in right arm (principal); M79.604 Pain in right leg; M79.602 Pain in left arm; M79.605 Pain in left leg
CPT/HCPCS: 80053; 85025; 85651; 86140; 96374; 96376; 99285

== ENCOUNTER 2023-01-03 11:25 | Emergency (ER) | payer OTHER, MEDICAID, SELFPAY ==
[2023-01-03] VITALS (8 sets, daily range): BP systolic 147–164; BP diastolic 96–116; PULSE 79–109; RESP 18–20; TEMP 36.6–36.8; O2SAT 95–97; BMI 35.6
[2023-01-03 11:50] LABS: Chloride 100 mmol/L (98-107); Sodium 140 mmol/L (136-145)
[2023-01-03 11:51] LABS: Potassium 3.3 mmoL/L (3.5-5.1)
[2023-01-03 11:53] LABS: Alanine Aminotransferase 24 U/L (12-78); Albumin Level 4.2 g/dl (3.5-5.0); Albumin/Globulin Ratio 1.4 (1.1-1.8); Alkaline Phosphatase 52 U/L (38-126); Anion Gap 13.3 mEq/L (5-15); Aspartate Amino Transferase 19 U/L (17-59); Bilirubin,Total 0.3 mg/dl (0.2-1.3); Blood Urea Nitrogen 19 mg/dl (9-20); Carbon Dioxide 30 mmol/L (22.0-30.0); Creatinine Clearance Estimated 148 mL/min (50-200); Estimated Glomerular Filt Rate 73 ml/min (>60); GFR (African American) 88 ML/MIN (>60); Globulin 3.1 g/dL (1.3-3.2); Total Protein,Serum 7.3 g/dl (6.3-8.2)
[2023-01-03 11:54] LABS: Calcium 9.2 mg/dl (8.4-10.2); Glucose 283 mg/dl (74-100)
[2023-01-03 11:59] LABS: C-Reactive Protein 9.7 mg/L (0-4)
[2023-01-03 12:34] LABS: Basophils # 0.1 K/mm3 (0-0.2); Basophils % 0.9 % (0.1-2.0); Eosinophils # 0.1 K/mm3 (0.0-0.4); Eosinophils % 0.8 % (0.1-12.0); Hematocrit 50.9 % (42.0-52.0); Hemoglobin 16.2 g/dL (14.1-18.0); Lymphocytes # 4.2 K/mm3 (0.7-4.5); Lymphocytes % 34.9 % (10-50); Mean Corpuscular HGB Conc 31.9 g/dL (31.8-35.4); Mean Corpuscular Hemoglobin 28.6 pg (27.0-31.2); Mean Corpuscular Volume 89.7 fl (80-94); Mean Platelet Volume 9.5 fl (7.4-10.4); Monocytes # 0.7 K/mm3 (0.1-1.0); Neutrophils # 6.9 K/mm3 (1.8-7.8); Neutrophils % 57.3 % (37.0-80.0); Platelet Count 266 K/mm3 (142-424); Red Blood Count 5.67 M/mm3 (4.60-6.20); Red Cell Distribution Width 13.7 % (11.5-17.5)
--- NOTE | 2023-01-03 12:40 | HMH.EDGENADL ---
Discharge Plan Disposition Patient Disposition: Home, Self-Care Prescriptions Prescriptions: New metformin 500 mg tablet extended release 24 hr 500 mg PO BID Qty: 60 0RF No Action lisinopril-hydrochlorothiazide 1 EACH tablet 1 tab PO DAILY testosterone cypionate 200 MG/ML oil 200 mg SQ DIRECTED certolizumab pegol 400 MG/2 ML syringe kit 400 mg SQ DIRECTED hydroxyzine HCl 25 mg tablet 25 mg PO DAILY Label Comments: TAKE 1 TABLET BY MOUTH NIGHTLY tizanidine [Zanaflex] 4 mg capsule 4 mg PO TID PRN (Reason: muscle spasticity) Qty: 30 0RF Referrals Follow up/Referrals: Bro Aviles [Primary Care Provider] - See instructions Clinical Impressions Clinical Impression: Psoriatic arthritis, Diabetes mellitus, new onset Stand Alone Forms Stand Alone Forms: Work/School Release Instructions Patient Instructions: Psoriatic Arthritis Discharge ED Provider: Carlos Paz General Adult HPI General Chief complaint: PAIN Stated complaint: Weakness Time Seen by Provider: 01/03/23 11:30 Mode of Arrival: EMS Source of Information: Patient and EMS Limitations: Physical Limitations Description of Symptoms (Recalled from ER Triage Doc. by RN): pt presents to ED stating he has a hx of psoriatic arthritis. pt states all of sudden today both of his legs started to feel as if he couldn't put weight on them and soreness. pt states he has had similar episodes in the past. pt states he takes monthly injections for his arthritis. History of Present Illness HPI narrative: 42-year-old white male presents after having fallen twice because his legs would not hold his weight. The patient reports he and his son took a long run a couple of days ago he is also seeing disability benefits specialist at the [facility] for psoriatic arthritis. And he receives every 2 week biologic injections for this. The patient reports that the sensation is not somewhat in his joints as his muscles he feels like they are weak he also reports that he feels like he can feel the tendons sliding through the sheaths as if there is some sort of obstruction with that. He has hypertension and borderline diabetes but no hypercholesterolemia. He does take testosterone supplementation as well. Related Data Home Medications Medication Instructions Recorded Confirmed certolizumab pegol 400 mg/2 mL 400 mg SQ DIRECTED Arthritis 09/27/21 10/28/22 (200 mg/mL x2) subcutaneous syringe kit lisinopril 20 1 tab PO DAILY High blood pressure 09/27/21 10/28/22 mg-hydrochlorothiazide 12.5 mg tablet testosterone cypionate 200 mg/mL 200 mg SQ DIRECTED Supplement 09/27/21 10/28/22 intramuscular oil hydroxyzine HCl 25 mg tablet 25 mg PO DAILY Diabetes 09/24/22 10/28/22 Previous Rx's Medication Instructions Recorded tizanidine 4 mg capsule (Zanaflex) 4 mg PO TID PRN muscle spasticity 10/28/22 #30 caps metformin 500 mg tablet,extended 500 mg PO BID #60 tabs 01/03/23 release 24 hr Allergies Allergy/AdvReac Type Severity Reaction Status Date / Time Penicillins Allergy Verified 09/24/22 10:50 [facility] Disclaimer: The information contained in this section may have been updated after the patient was seen, as this information can be updated by other users. Social History Smoking Status: Never smoker alcohol intake: never current occupational status: employed Travel in the last 8 weeks: None [facility] Social History Smoking Status: Never smoker alcohol intake: never current occupational status: employed Travel in the last 8 weeks: None ROS Obtained: Yes All systems reviewed & no additional complaints except as documented Physical Exam General General appearance: alert and in no apparent distress Head Head exam: atraumatic and normocephalic Eye Eye exam: Present normal a
[2023-01-03 12:48] LABS: Creatine Kinase 127 U/L (55-170)
[2023-01-03 12:57] LABS: Uric Acid 5.1 mg/dl (3.5-8.5)
--- NOTE | 2023-01-03 13:06 | PC.NURSE ---
pt wheeled back from bathroom via wheelchair, stood to get into bed.
[2023-01-03 13:25] LABS: Erythrocyte Sedimentation Rate 3 mm/hr (0-15)
--- NOTE | 2023-01-03 13:40 | HMH.EDGENADL ---
Discharge Plan Disposition Patient Disposition: Home, Self-Care Prescriptions Prescriptions: New metformin 500 mg tablet extended release 24 hr 500 mg PO BID Qty: 60 0RF No Action lisinopril-hydrochlorothiazide 1 EACH tablet 1 tab PO DAILY testosterone cypionate 200 MG/ML oil 200 mg SQ DIRECTED certolizumab pegol 400 MG/2 ML syringe kit 400 mg SQ DIRECTED hydroxyzine HCl 25 mg tablet 25 mg PO DAILY Label Comments: TAKE 1 TABLET BY MOUTH NIGHTLY tizanidine [Zanaflex] 4 mg capsule 4 mg PO TID PRN (Reason: muscle spasticity) Qty: 30 0RF Referrals Follow up/Referrals: Bro Aviles [Primary Care Provider] - See instructions Clinical Impressions Clinical Impression: Psoriatic arthritis, Diabetes mellitus, new onset Stand Alone Forms Stand Alone Forms: Work/School Release Instructions Patient Instructions: Psoriatic Arthritis Discharge ED Provider: Carlos Paz General Adult HPI General Chief complaint: PAIN Stated complaint: Weakness Time Seen by Provider: 01/03/23 11:30 Mode of Arrival: EMS Source of Information: Patient and EMS Limitations: Physical Limitations Description of Symptoms (Recalled from ER Triage Doc. by RN): pt presents to ED stating he has a hx of psoriatic arthritis. pt states all of sudden today both of his legs started to feel as if he couldn't put weight on them and soreness. pt states he has had similar episodes in the past. pt states he takes monthly injections for his arthritis. Related Data Home Medications Medication Instructions Recorded Confirmed certolizumab pegol 400 mg/2 mL 400 mg SQ DIRECTED Arthritis 09/27/21 10/28/22 (200 mg/mL x2) subcutaneous syringe kit lisinopril 20 1 tab PO DAILY High blood pressure 09/27/21 10/28/22 mg-hydrochlorothiazide 12.5 mg tablet testosterone cypionate 200 mg/mL 200 mg SQ DIRECTED Supplement 09/27/21 10/28/22 intramuscular oil hydroxyzine HCl 25 mg tablet 25 mg PO DAILY Diabetes 09/24/22 10/28/22 Previous Rx's Medication Instructions Recorded tizanidine 4 mg capsule (Zanaflex) 4 mg PO TID PRN muscle spasticity 10/28/22 #30 caps metformin 500 mg tablet,extended 500 mg PO BID #60 tabs 01/03/23 release 24 hr Allergies Allergy/AdvReac Type Severity Reaction Status Date / Time Penicillins Allergy Verified 09/24/22 10:50 [facility] Disclaimer: The information contained in this section may have been updated after the patient was seen, as this information can be updated by other users. Social History Smoking Status: Never smoker alcohol intake: never current occupational status: employed Travel in the last 8 weeks: None ROS Obtained: Yes All systems reviewed & no additional complaints except as documented Physical Exam General General appearance: alert and in no apparent distress Respiratory Respiratory exam: Present normal lung sounds bilaterally Cardiovascular Cardiovascular exam: Present regular rate and normal rhythm Neurological Exam Neurological exam: Present alert, oriented X3 and CN II-XII intact Medical Decision Making Medical Records MR Comment: 42-year-old white male comes in with acute flare of his arthritis he has psoriatic arthritis for which 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 The patient fell a couple times because of the pain and weakness in his legs. Evaluations have included CBC CMP uric acid sed rate and C-reactive protein. He also had a hemoglobin A1c remarkable findings include elevated C-reactive protein elevated hemoglobin A1c potassium low at 3. 3. He is given a 125 mg of Solu-Medrol IV and 10 mill equivalents of potassium we have also started metformin 500 extended release p.o. twice daily until he can reach his primary care. He is recommended to follow-up within a week as his primary care. Stef Inquiry Pt receiving controlled substance: No
--- NOTE | 2023-01-03 14:22 | PC.NURSE ---
pt up standing at curtains waiting on discharge paperwork. pt ambulated around room. MD finishing pt's chart at this time.
== END 2023-01-03 14:23 | disposition home or self-care (01) ==
PROVIDERS: Emergency Provider Emergency Medicine; PCP Family Medicine
DX: E11.65 Type 2 diabetes mellitus with hyperglycemia (principal); L40.52 Psoriatic arthritis mutilans; E87.6 Hypokalemia; W19.XXXA Unspecified fall, initial encounter
CPT/HCPCS: 80053; 82550; 84550; 85025; 85651; 86140; 96374; 99284; 99285

== ENCOUNTER 2023-05-24 13:50 | Emergency (ER) | payer BC, MEDICAID, SELFPAY ==
[2023-05-24 13:51] VITALS: BP 154/103; PULSE 94; RESP 18; TEMP 36.9; O2SAT 98; BMI 34.9
[2023-05-24 14:17] LABS: Coronavirus 19, PCR Not Detected (NotDetected); Influenza A, PCR Not Detected (NotDetected); Influenza B, PCR Not Detected (NotDetected)
[2023-05-24 14:30] VITALS: BP 148/87; PULSE 90; RESP 18; O2SAT 96
[2023-05-24 14:31] LABS: Strep Scrn Group A (Rapid) Negative (Negative)
--- NOTE | 2023-05-24 14:55 | HMH.EDGENADL ---
Discharge Plan Disposition Patient Disposition: Home, Self-Care Prescriptions Prescriptions: New ondansetron 4 mg tablet,disintegrating 4 mg PO Q8H PRN (Reason: nausea and vomiting) 4 Days Qty: 12 0RF No Action lisinopril-hydrochlorothiazide 1 EACH tablet 1 tab PO DAILY testosterone cypionate 200 MG/ML oil 200 mg SQ DIRECTED certolizumab pegol 400 MG/2 ML syringe kit 400 mg SQ DIRECTED hydroxyzine HCl 25 mg tablet 25 mg PO DAILY Patient Comments: TAKE 1 TABLET BY MOUTH NIGHTLY tizanidine [Zanaflex] 4 mg capsule 4 mg PO TID PRN (Reason: muscle spasticity) Qty: 30 0RF metformin 500 mg tablet extended release 24 hr 500 mg PO BID Qty: 60 0RF Referrals Follow up/Referrals: Bro Aviles [Primary Care Provider] - See instructions Activity Restrictions/Add. Instructions Additional Instructions/Restrictions: At this time is felt you are safe to be discharged home. If new or worsening symptoms please do not hesitate to return the emergency department. Please follow-up with your family doctor next week to recheck your kidney function. Please take your medications as prescribed. Clinical Impressions Clinical Impression: Diarrhea, Acute viral syndrome, Pharyngitis Discharge ED Provider: Fredrick Saenz General Adult HPI General Chief complaint: Nausea/Vomiting/Diarrhea Stated complaint: body ache, diahrrhea, fever, nausea Time Seen by Provider: 05/24/23 14:40 Mode of Arrival: Ambulatory Source of Information: Patient Limitations: No Limitations Description of Symptoms (Recalled from ER Triage Doc. by RN): Patient reports sore throat an diarrhea that started yesterday. Patient reports not being able to keep any of his medications down because of his nausea. Denies taking any meds IP LITIGATION PARALEGAL. History of Present Illness HPI narrative: Patient is a 43-year-old male with past medical history of psoriatic arthritis on immunotherapy who presents emergency department for evaluation of diffuse diarrhea and sore throat. Over the last day patient has had progressive symptoms with multiple watery stools causing him to present here for continued evaluation. He has diffuse body aches worse in his back. There is an associated bifrontal headache. No other acute complaints at this time. Related Data Home Medications Medication Instructions Recorded Confirmed certolizumab pegol 400 mg/2 mL 400 mg SQ DIRECTED Arthritis 09/27/21 10/28/22 (200 mg/mL x2) subcutaneous syringe kit lisinopril 20 1 tab PO DAILY High blood pressure 09/27/21 10/28/22 mg-hydrochlorothiazide 12.5 mg tablet testosterone cypionate 200 mg/mL 200 mg SQ DIRECTED Supplement 09/27/21 10/28/22 intramuscular oil hydroxyzine HCl 25 mg tablet 25 mg PO DAILY Diabetes 09/24/22 10/28/22 Previous Rx's Medication Instructions Recorded tizanidine 4 mg capsule (Zanaflex) 4 mg PO TID PRN muscle spasticity 10/28/22 #30 caps metformin 500 mg tablet,extended 500 mg PO BID #60 tabs 01/03/23 release 24 hr ondansetron 4 mg disintegrating 4 mg PO Q8H PRN nausea and 05/24/23 tablet vomiting 4 days #12 tabs Allergies Allergy/AdvReac Type Severity Reaction Status Date / Time Penicillins Allergy Verified 09/24/22 10:50 [facility] Disclaimer: The information contained in this section may have been updated after the patient was seen, as this information can be updated by other users. Social History Smoking Status: Never smoker alcohol intake: never current occupational status: employed Travel in the last 8 weeks: None ROS Obtained: Yes Systems reviewed as appropriate & no additional complaints except as documented Physical Exam General General appearance: alert and in no apparent distress Head Head exam: atraumatic and normocephalic Eye Eye exam: Present PERRL and EOMI ENT ENT exam: Present mucous membranes moist Neck Neck exam: P
[2023-05-24 15:01] VITALS: BP 145/106; PULSE 98; O2SAT 96
[2023-05-24 15:23] LABS: Chloride 103 mmol/L (98-107); Potassium 4.5 mmoL/L (3.5-5.1); Sodium 140 mmol/L (136-145)
[2023-05-24 15:25] LABS: Blood Urea Nitrogen 20 mg/dl (9-20); Creatinine Clearance Estimated 122 mL/min (50-200); Estimated Glomerular Filt Rate 60 ml/min (>60); GFR (African American) 72 ML/MIN (>60)
[2023-05-24 15:26] LABS: Alanine Aminotransferase 27 U/L (12-78); Albumin Level 4.3 g/dl (3.5-5.0); Albumin/Globulin Ratio 1.2 (1.1-1.8); Alkaline Phosphatase 102 U/L (38-126); Anion Gap 15.5 mEq/L (5-15); Aspartate Amino Transferase 27 U/L (17-59); Calcium 9.4 mg/dl (8.4-10.2); Carbon Dioxide 26 mmol/L (22.0-30.0); Creatine Kinase 166 U/L (55-170); Globulin 3.6 g/dL (1.3-3.2); Glucose 130 mg/dl (74-100); Total Protein,Serum 7.9 g/dl (6.3-8.2)
[2023-05-24 15:27] LABS: Magnesium 1.8 mg/dl (1.6-2.3)
[2023-05-24 15:35] LABS: Basophils # 0.1 K/mm3 (0-0.2); Basophils % 0.6 % (0.1-2.0); Eosinophils # 0.1 K/mm3 (0.0-0.4); Eosinophils % 0.5 % (0.1-12.0); Hemoglobin 17.9 g/dL (14.1-18.0); Lymphocytes # 0.8 K/mm3 (0.7-4.5); Mean Corpuscular HGB Conc 31.3 g/dL (31.8-35.4); Mean Corpuscular Hemoglobin 28.6 pg (27.0-31.2); Mean Corpuscular Volume 91.3 fl (80-94); Mean Platelet Volume 9.1 fl (7.4-10.4); Monocytes # 0.6 K/mm3 (0.1-1.0); Monocytes % 5.8 % (1.7-9.3); Neutrophils # 9.5 K/mm3 (1.8-7.8); Neutrophils % 86.1 % (37.0-80.0); Platelet Count 213 K/mm3 (142-424); Red Blood Count 6.25 M/mm3 (4.60-6.20); Red Cell Distribution Width 13.6 % (11.5-17.5)
[2023-05-24 15:42] LABS: MANUAL DIFFERENTIAL MANUAL DIFFERENTIAL (MANUAL DIFF)
[2023-05-24 16:01] VITALS: BP 120/64; PULSE 82; RESP 18; TEMP 36.9; O2SAT 97
[2023-05-24 16:58] LABS: Lymphocytes % 4 % (10-50); Monocytes % 5 % (2-9); Neutrophils % 89 % (42-76); Platelet Estimate Normal; RBC Morphology Normal; Total Cells Counted 100
== END 2023-05-24 16:03 | disposition home or self-care (01) ==
PROVIDERS: Emergency Provider Emergency Medicine; PCP Family Medicine
DX: R19.7 Diarrhea, unspecified (principal); J02.9 Acute pharyngitis, unspecified; B34.9 Viral infection, unspecified; L40.52 Psoriatic arthritis mutilans
CPT/HCPCS: 80053; 82550; 83735; 85007; 85025; 87430; 87636; 96361; 96374; 96375; 99285; J0131

== ENCOUNTER 2023-06-12 21:16 | Emergency (ER) | payer BC, MEDICAID, SELFPAY ==
[2023-06-12 21:18] VITALS: BP 164/105; PULSE 80; RESP 18; TEMP 36.7; O2SAT 96; BMI 34.9
[2023-06-12 22:39] VITALS: BP 163/104; PULSE 72; RESP 18; TEMP 36.8; O2SAT 98
--- NOTE | 2023-06-13 13:20 | HMH.EDGENADL ---
Discharge Plan Disposition Patient Disposition: Home, Self-Care Condition: Fair Prescriptions Prescriptions: New hydrocodone-acetaminophen 10-300 mg tablet 1 tab PO Q12H PRN (Reason: pain) Qty: 10 0RF No Action lisinopril-hydrochlorothiazide 1 EACH tablet 1 tab PO DAILY testosterone cypionate 200 MG/ML oil 200 mg SQ DIRECTED certolizumab pegol 400 MG/2 ML syringe kit 400 mg SQ DIRECTED hydroxyzine HCl 25 mg tablet 25 mg PO DAILY Patient Comments: TAKE 1 TABLET BY MOUTH NIGHTLY tizanidine [Zanaflex] 4 mg capsule 4 mg PO TID PRN (Reason: muscle spasticity) Qty: 30 0RF metformin 500 mg tablet extended release 24 hr 500 mg PO BID Qty: 60 0RF ondansetron 4 mg tablet,disintegrating 4 mg PO Q8H PRN (Reason: nausea and vomiting) 4 Days Qty: 12 0RF Referrals Follow up/Referrals: Bro Aviles [Primary Care Provider] - See instructions Activity Restrictions/Add. Instructions Additional Instructions/Restrictions: Please return to the emergency department if you experience any new or worsening symptoms. Clinical Impressions Clinical Impression: Psoriatic arthritis Discharge ED Provider: Allen Jarquin General Adult HPI General Chief complaint: Extremity Problem,Nontraumatic Stated complaint: bilateral leg pain and swelling Time Seen by Provider: 06/12/23 21:32 Mode of Arrival: Ambulatory Source of Information: Patient Limitations: No Limitations Description of Symptoms (Recalled from ER Triage Doc. by RN): Presents to ED with c/o RLE pain that occurs at rest but worse upon ambulation. Patient reports pain that shoots up from his ankle to his hip. Patient states he believes this is a flare up of his Psoriatic arthritis; patient states he is out of his injections that he takes through out the month but his doctor is out. Patient states his doctor provided him a supply of steroids that he has been taking for a week as well as 800mg Ibuprofen with no relief. History of Present Illness HPI narrative: Patient presents for evaluation of right medial leg pain in the absence of trauma, in the setting of psoriatic arthritis and difficulty with access to his immunologic therapy, patient denies any fevers, numbness, tingling, however describes severe nonradiating pain that has been refractory to ibuprofen, previous therapies include course of steroids provided by PCP. No pain elsewhere, patient has had work-up previously of ultrasound of lower extremity to evaluate for DVT that was reportedly negative, patient has had difficulty with ambulation and severe pain limiting ADLs Related Data Home Medications Medication Instructions Recorded Confirmed certolizumab pegol 400 mg/2 mL 400 mg SQ DIRECTED Arthritis 09/27/21 10/28/22 (200 mg/mL x2) subcutaneous syringe kit lisinopril 20 1 tab PO DAILY High blood pressure 09/27/21 10/28/22 mg-hydrochlorothiazide 12.5 mg tablet testosterone cypionate 200 mg/mL 200 mg SQ DIRECTED Supplement 09/27/21 10/28/22 intramuscular oil hydroxyzine HCl 25 mg tablet 25 mg PO DAILY Diabetes 09/24/22 10/28/22 Previous Rx's Medication Instructions Recorded tizanidine 4 mg capsule (Zanaflex) 4 mg PO TID PRN muscle spasticity 10/28/22 #30 caps metformin 500 mg tablet,extended 500 mg PO BID #60 tabs 01/03/23 release 24 hr ondansetron 4 mg disintegrating 4 mg PO Q8H PRN nausea and 05/24/23 tablet vomiting 4 days #12 tabs hydrocodone 10 mg-acetaminophen 1 tab PO Q12H PRN pain #10 tabs 06/12/23 300 mg tablet Allergies Allergy/AdvReac Type Severity Reaction Status Date / Time Penicillins Allergy Verified 09/24/22 10:50 PFSH PFSH Disclaimer: The information contained in this section may have been updated after the patient was seen, as this information can be updated by other users. Social History Smoking Status: Never smoker alcohol intake: never current oc
== END 2023-06-12 22:40 | disposition home or self-care (01) ==
PROVIDERS: Emergency Provider Emergency Medicine; PCP Family Medicine
DX: L40.59 Other psoriatic arthropathy (principal); M79.604 Pain in right leg
CPT/HCPCS: 99283

== ENCOUNTER 2023-07-11 20:44 | Emergency (ER) | payer BC, MEDICAID, SELFPAY ==
[2023-07-11 20:45] VITALS: BP 204/110; PULSE 74; RESP 16; TEMP 36.9; O2SAT 96; BMI 35.6
--- NOTE | 2023-07-11 20:54 | XR_ITS ---
PROCEDURE INFORMATION: Exam: XR Chest Exam date and time: 07/11/2023 8:55 PM Age: 43 years old Clinical indication: Other: Congestion TECHNIQUE: Imaging protocol: Radiologic exam of the chest. Views: 2 views. COMPARISON: CR XR CHEST 2V 09/26/2021 11:29 PM FINDINGS: Lungs: Central opacities with peribronchial cuffing, seen to advantage on the lateral chest radiograph suggest viral process versus reactive airways without convincing consolidation. Pleural spaces: Unremarkable. No pleural effusion. No pneumothorax. Heart/Mediastinum: Unremarkable. No cardiomegaly. Bones/joints: Unremarkable. IMPRESSION: Central opacities with peribronchial cuffing, seen to advantage on the lateral chest radiograph suggest viral process versus reactive airways without convincing consolidation.
--- NOTE | 2023-07-11 21:31 | HMH.EDGENADL ---
Discharge Plan Disposition Patient Disposition: Home, Self-Care Prescriptions Prescriptions: New azithromycin 250 mg tablet 250 mg PO DAILY 4 Days Qty: 4 0RF Rx Instructions: start on day 2 of therapy (day after ED visit) amoxicillin-pot clavulanate 875-125 mg tablet 1 tab PO BID 10 Days Qty: 20 0RF pseudoephedrine HCl 120 mg tablet extended release 120 mg PO BID PRN (Reason: nasal congestion) 7 Days Qty: 14 0RF No Action lisinopril-hydrochlorothiazide 1 EACH tablet 1 tab PO DAILY testosterone cypionate 200 MG/ML oil 200 mg SQ DIRECTED certolizumab pegol 400 MG/2 ML syringe kit 400 mg SQ DIRECTED hydroxyzine HCl 25 mg tablet 25 mg PO DAILY Patient Comments: TAKE 1 TABLET BY MOUTH NIGHTLY tizanidine [Zanaflex] 4 mg capsule 4 mg PO TID PRN (Reason: muscle spasticity) Qty: 30 0RF metformin 500 mg tablet extended release 24 hr 500 mg PO BID Qty: 60 0RF ondansetron 4 mg tablet,disintegrating 4 mg PO Q8H PRN (Reason: nausea and vomiting) 4 Days Qty: 12 0RF oxycodone-acetaminophen 10-325 mg tablet 1 tab PO Q12H PRN (Reason: pain) Qty: 10 0RF Referrals Follow up/Referrals: Bro Aviles [Primary Care Provider] - See instructions Activity Restrictions/Add. Instructions Additional Instructions/Restrictions: Your upper respiratory infection and acute sinusitis from historic standpoint is most likely viral however given the fact that you are immune suppressed we will go and treat for possible bacterial etiologies with antibiotics. Please follow-up with primary care doctor as needed return to the emergency department high fevers or other concerns. Clinical Impressions Clinical Impression: Acute sinusitis, Bronchitis, Immunosuppressed status Discharge ED Provider: Hannah Fuentes General Adult HPI General Chief complaint: Upper Respiratory Infection Stated complaint: congestion, cough, runny nose Time Seen by Provider: 07/11/23 21:23 Mode of Arrival: Ambulatory Source of Information: Patient Limitations: No Limitations Description of Symptoms (Recalled from ER Triage Doc. by RN): pt c/o sore throat, Hope, head and chest congestion, bilateral ear pain that started 3 days ago History of Present Illness HPI narrative: Patient is a 43-year-old male presenting today with headache sore throat cough nasal congestion bilateral ear pain and sore 3 days ago. States that he is on immunosuppressants for psoriatic arthritis and that in the past if this is not taking care of very quickly that he has had to be hospitalized for pneumonia. He is concerned about that developing again. Denies any fevers or chills shortness of breath etc. No severe headache or neurologic symptoms. Related Data Home Medications Medication Instructions Recorded Confirmed certolizumab pegol 400 mg/2 mL 400 mg SQ DIRECTED Arthritis 09/27/21 10/28/22 (200 mg/mL x2) subcutaneous syringe kit lisinopril 20 1 tab PO DAILY High blood pressure 09/27/21 10/28/22 mg-hydrochlorothiazide 12.5 mg tablet testosterone cypionate 200 mg/mL 200 mg SQ DIRECTED Supplement 09/27/21 10/28/22 intramuscular oil hydroxyzine HCl 25 mg tablet 25 mg PO DAILY Diabetes 09/24/22 10/28/22 Previous Rx's Medication Instructions Recorded tizanidine 4 mg capsule (Zanaflex) 4 mg PO TID PRN muscle spasticity 10/28/22 #30 caps metformin 500 mg tablet,extended 500 mg PO BID #60 tabs 01/03/23 release 24 hr ondansetron 4 mg disintegrating 4 mg PO Q8H PRN nausea and 05/24/23 tablet vomiting 4 days #12 tabs oxycodone-acetaminophen 10 mg-325 1 tab PO Q12H PRN pain #10 tabs 06/13/23 mg tablet amoxicillin 875 mg-potassium 1 tab PO BID 10 days #20 tabs 07/11/23 clavulanate 125 mg tablet azithromycin 250 mg tablet 250 mg PO DAILY 4 days #4 tabs 07/11/23 pseudoephedrine HCl 120 mg 120 mg PO BID PRN nasal congestion 07/11/23 tablet,extended release 7 days #14 tabs Allergies Allergy/Adv
[2023-07-11 21:41] VITALS: BP 188/96; PULSE 86; RESP 18; TEMP 36.7
== END 2023-07-11 21:42 | disposition home or self-care (01) ==
PROVIDERS: Emergency Provider Student in an Organized Health Care Education/Training Program; PCP Family Medicine
DX: J20.9 Acute bronchitis, unspecified (principal); J01.90 Acute sinusitis, unspecified; D84.9 Immunodeficiency, unspecified; L40.50 Arthropathic psoriasis, unspecified; F17.210 Nicotine dependence, cigarettes, uncomplicated
CPT/HCPCS: 71046; 99283

== ENCOUNTER 2023-08-19 20:38 | Emergency (ER) | payer OTHER, SELFPAY ==
--- NOTE | 2023-08-19 20:33 | ECG_ITS ---
APPROVED REPORT Exam: Resting ECG HR:86 bpm ECG Measurements Heart Rate [address] 148 P 59 QRSd 91 QRS 49 QT 358 T 44 QTc 401 Conclusion SINUS RHYTHM NORMAL ECG UNCONFIRMED REPORT Electronically signed by : Elie Rojas MD 08/20/2023 19:18:19
[2023-08-19 20:38] VITALS: BP 170/110; PULSE 79; RESP 14; TEMP 36.6; O2SAT 99; BMI 35.6
--- NOTE | 2023-08-19 20:38 | HMH.EDGENADL ---
Discharge Plan Disposition Patient Disposition: Home, Self-Care Prescriptions Prescriptions: No Action lisinopril-hydrochlorothiazide 1 EACH tablet 1 tab PO DAILY testosterone cypionate 200 MG/ML oil 200 mg SQ DIRECTED certolizumab pegol 400 MG/2 ML syringe kit 400 mg SQ DIRECTED hydroxyzine HCl 25 mg tablet 25 mg PO DAILY Patient Comments: TAKE 1 TABLET BY MOUTH NIGHTLY tizanidine [Zanaflex] 4 mg capsule 4 mg PO TID PRN (Reason: muscle spasticity) Qty: 30 0RF metformin 500 mg tablet extended release 24 hr 500 mg PO BID Qty: 60 0RF ondansetron 4 mg tablet,disintegrating 4 mg PO Q8H PRN (Reason: nausea and vomiting) 4 Days Qty: 12 0RF oxycodone-acetaminophen 10-325 mg tablet 1 tab PO Q12H PRN (Reason: pain) Qty: 10 0RF azithromycin 250 mg tablet 250 mg PO DAILY 4 Days Qty: 4 0RF Rx Instructions: start on day 2 of therapy (day after ED visit) amoxicillin-pot clavulanate 875-125 mg tablet 1 tab PO BID 10 Days Qty: 20 0RF pseudoephedrine HCl 120 mg tablet extended release 120 mg PO BID PRN (Reason: nasal congestion) 7 Days Qty: 14 0RF Referrals Follow up/Referrals: Provider,Referral, MD [Primary Care Provider] - See instructions Activity Restrictions/Add. Instructions Additional Instructions/Restrictions: Please follow-up with your primary care provider. Please return to the emergency department if you develop any new or worsening symptoms or become concerned for your health. Clinical Impressions Clinical Impression: Dizziness Discharge ED Provider: Nahum Em General Adult HPI General Chief complaint: Overdose Stated complaint: overdose Time Seen by Provider: 08/19/23 20:38 History of Present Illness HPI narrative: 43-year-old male, history of psoriatic arthritis and hypertension presents with possible overdose. 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 He reports that he began feeling dizzy and gave himself intranasal Narcan 2 mg at approximately 8:05 PM. Within a minute or 2 his dizziness markedly improved. He currently has no dizziness. EMS was called. Patient reports that he has a mild headache at this time. Reports that he has no chest pain shortness of breath or any other symptoms. Related Data Home Medications Medication Instructions Recorded Confirmed certolizumab pegol 400 mg/2 mL 400 mg SQ DIRECTED Arthritis 09/27/21 10/28/22 (200 mg/mL x2) subcutaneous syringe kit lisinopril 20 1 tab PO DAILY High blood pressure 09/27/21 10/28/22 mg-hydrochlorothiazide 12.5 mg tablet testosterone cypionate 200 mg/mL 200 mg SQ DIRECTED Supplement 09/27/21 10/28/22 intramuscular oil hydroxyzine HCl 25 mg tablet 25 mg PO DAILY Diabetes 09/24/22 10/28/22 Previous Rx's Medication Instructions Recorded tizanidine 4 mg capsule (Zanaflex) 4 mg PO TID PRN muscle spasticity 10/28/22 #30 caps metformin 500 mg tablet,extended 500 mg PO BID #60 tabs 01/03/23 release 24 hr ondansetron 4 mg disintegrating 4 mg PO Q8H PRN nausea and 05/24/23 tablet vomiting 4 days #12 tabs oxycodone-acetaminophen 10 mg-325 1 tab PO Q12H PRN pain #10 tabs 06/13/23 mg tablet amoxicillin 875 mg-potassium 1 tab PO BID 10 days #20 tabs 07/11/23 clavulanate 125 mg tablet azithromycin 250 mg tablet 250 mg PO DAILY 4 days #4 tabs 07/11/23 pseudoephedrine HCl 120 mg 120 mg PO BID PRN nasal congestion 07/11/23 tablet,extended release 7 days #14 tabs Allergies Allergy/AdvReac Type Severity Reaction Status Date / Time Penicillins Allergy Verified 09/24/22 10:50 [facility] Disclaimer: The information contained in this section may have been updated after the patient was seen, as this information can be updated by other users. Social History Smoking Status: Heavy tobacco smoker
[2023-08-19 21:09] VITALS: BP 160/121; PULSE 78; RESP 17; O2SAT 97
[2023-08-19 21:10] VITALS: BP 159/111; PULSE 71; RESP 14; O2SAT 98
--- NOTE | 2023-08-19 21:11 | PC.NURSE ---
BP cuff moved to patient's left arm
[2023-08-19 21:45] VITALS: BP 167/116; PULSE 84; RESP 12; O2SAT 98
[2023-08-19 21:58] VITALS: BP 154/100; PULSE 78; RESP 16; TEMP 36.6; O2SAT 98
== END 2023-08-19 21:58 | disposition home or self-care (01) ==
PROVIDERS: Emergency Provider Emergency Medicine
DX: R42 Dizziness and giddiness (principal); R51.9 Headache, unspecified; I10 Essential (primary) hypertension; L40.52 Psoriatic arthritis mutilans; F17.200 Nicotine dependence, unspecified, uncomplicated
CPT/HCPCS: 93005; 99285

== ENCOUNTER 2023-10-12 22:56 | Emergency (ER) | payer BC, MEDICAID, SELFPAY ==
--- NOTE | 2023-10-12 22:58 | HMH.EDGENADL ---
Discharge Plan Disposition Patient Disposition: Home, Self-Care Prescriptions Prescriptions: No Action lisinopril-hydrochlorothiazide 1 EACH tablet 1 tab PO DAILY testosterone cypionate 200 MG/ML oil 200 mg SQ DIRECTED certolizumab pegol 400 MG/2 ML syringe kit 400 mg SQ DIRECTED hydroxyzine HCl 25 mg tablet 25 mg PO DAILY Patient Comments: TAKE 1 TABLET BY MOUTH NIGHTLY tizanidine [Zanaflex] 4 mg capsule 4 mg PO TID PRN (Reason: muscle spasticity) Qty: 30 0RF metformin 500 mg tablet extended release 24 hr 500 mg PO BID Qty: 60 0RF ondansetron 4 mg tablet,disintegrating 4 mg PO Q8H PRN (Reason: nausea and vomiting) 4 Days Qty: 12 0RF oxycodone-acetaminophen 10-325 mg tablet 1 tab PO Q12H PRN (Reason: pain) Qty: 10 0RF azithromycin 250 mg tablet 250 mg PO DAILY 4 Days Qty: 4 0RF Rx Instructions: start on day 2 of therapy (day after ED visit) amoxicillin-pot clavulanate 875-125 mg tablet 1 tab PO BID 10 Days Qty: 20 0RF pseudoephedrine HCl 120 mg tablet extended release 120 mg PO BID PRN (Reason: nasal congestion) 7 Days Qty: 14 0RF Referrals Follow up/Referrals: Bro Aviles [Primary Care Provider] - See instructions Activity Restrictions/Add. Instructions Additional Instructions/Restrictions: Please follow-up with your primary care provider. Please return to the emergency department if you develop any new or worsening symptoms or become concerned for your health. Clinical Impressions Clinical Impression: Migraine Qualifiers: Migraine type: unspecified Status migrainosus presence: without status migrainosus Intractability: not intractable Qualified Code(s): G43.909 - Migraine, unspecified, not intractable, without status migrainosus Discharge ED Provider: Nahum mE Adult HPI General Chief complaint: Headache Stated complaint: migraine nausea Time Seen by Provider: 10/12/23 22:57 History of Present Illness HPI narrative: 43-year-old male with history of psoriatic arthritis, chronic hypertension, migraines presents with acute migraine. He reports it started yesterday. He has been feeling bad overall for the last couple of days, reports recent flu exposure. He reports the migraine is consistent with prior migraines. Reports it is painful behind his eyes. Worse with light, not worse with noise. Reports she is sleeping more than normal. Related Data Home Medications Medication Instructions Recorded Confirmed certolizumab pegol 400 mg/2 mL 400 mg SQ DIRECTED Arthritis 09/27/21 10/28/22 (200 mg/mL x2) subcutaneous syringe kit lisinopril 20 1 tab PO DAILY High blood pressure 09/27/21 10/28/22 mg-hydrochlorothiazide 12.5 mg tablet testosterone cypionate 200 mg/mL 200 mg SQ DIRECTED Supplement 09/27/21 10/28/22 intramuscular oil hydroxyzine HCl 25 mg tablet 25 mg PO DAILY Diabetes 09/24/22 10/28/22 Previous Rx's Medication Instructions Recorded tizanidine 4 mg capsule (Zanaflex) 4 mg PO TID PRN muscle spasticity 10/28/22 #30 caps metformin 500 mg tablet,extended 500 mg PO BID #60 tabs 01/03/23 release 24 hr ondansetron 4 mg disintegrating 4 mg PO Q8H PRN nausea and 05/24/23 tablet vomiting 4 days #12 tabs oxycodone-acetaminophen 10 mg-325 1 tab PO Q12H PRN pain #10 tabs 06/13/23 mg tablet amoxicillin 875 mg-potassium 1 tab PO BID 10 days #20 tabs 07/11/23 clavulanate 125 mg tablet azithromycin 250 mg tablet 250 mg PO DAILY 4 days #4 tabs 07/11/23 pseudoephedrine HCl 120 mg 120 mg PO BID PRN nasal congestion 07/11/23 tablet,extended release 7 days #14 tabs Allergies Allergy/AdvReac Type Severity Reaction Status Date / Time Penicillins Allergy Verified 09/24/22 10:50 [facility] Disclaimer: The information contained in this section may have been updated after the patient was seen, as this information can be updated by other users. Social History Smoking Status: Never smoker alcohol intake: never current occupational status: employed Travel in the last 8 weeks: None ROS Obtained: Yes All systems reviewed & no additional complaints except as documented Physical Exam General General appearance: alert Comment: Uncomfortable appearing Head Head exam: atraumatic and normocephalic Eye Eye exam: Present normal appearance, PERRL and EOMI ENT ENT exam: Present normal oropharynx and normal external ear exam Neck Neck exam: Present normal inspection and full ROM Chest Chest inspection: Present normal inspection and symmetric chest wall rise; Absent tenderness Respiratory Respiratory exam: Present normal lung sounds bilaterally; Absent respiratory distress Cardiovascular Cardiovascular exam: Present regular rate and normal rhythm Abdominal Exam Abdominal exam: Present soft; Absent distention, tenderness or guarding Extremities Exam Extremities exam: Present normal inspection; Absent edema or joint swelling Back Exam Back exam: Present normal inspection; Absent tenderness Neurological Exam Neurological exam: Present alert and oriented X3; Absent motor sensory deficit Psychiatric Psychiatric exam: Present normal affect and normal mood Skin Skin exam: Present warm, dry and normal color Lymphatic Lymphatic Findings: no adenopathy Medical Decision Making Medical Records Medical records reviewed: Yes I reviewed the patient's medical records. Stef Inquiry Pt receiving controlled substance: No Stef was queried for this patient: No Vital Signs: 10/12/23 23:05 Temperature 98.3 F Temperature Source Oral Pulse Rate [Left Radial] 94 H Respiratory Rate 20 Blood Pressure [Right Arm] 169/117 H Blood Pressure Mean [Right Arm] 134 Blood Pressure Source [Right Arm] Automatic Cuff 02 Sat by Pulse Oximetry 98 Oxygen Delivery Method Room Air Lab Data Lab results reviewed: Yes I reviewed the patient's lab results. Orders (Tests/Meds): ED MEDICATIONS Generic Name Dose Route Start Last Admin Trade Name Freq PRN Reason Stop Dose Admin Sodium Chloride 10 ml 10/12/23 23:03 Sodium Chloride 0.9% 10ml Flush Syringe IV 11/11/23 23:02 NEEDED PRN Maintain IV Site Discontinued Medications Generic Name Dose Route Start Last Admin Trade Name Freq PRN Reason Stop Dose Admin Diphenhydramine HCl 25 mg 10/12/23 23:05 10/12/23 23:14 Diphenhydramine 50mg/Ml Vial IV 10/12/23 23:06 25 mg ONCE ONE Administration Magnesium Sulfate 2 gm in 50 mls @ 50 mls/hr 10/12/23 23:07 10/12/23 23:14 Magnesium Sulfate 2gm/50ml Premix IV 10/13/23 00:06 50 mls/hr ONCE ONE Administration Sodium Chloride 1,000 mls @ 999 mls/hr 10/12/23 23:15 10/12/23 23:14 Sod Chlor 0.9% 1000ml Bag IV 10/13/23 00:15 999 mls/hr .Q1H1M [place] Administration Metoclopramide HCl 10 mg 10/12/23 23:03 10/12/23 23:13 Metoclopramide Hcl 10mg/2ml Vial IV 10/12/23 23:04 10 mg ONCE ONE Administration Medical Decision Narrative: 43-year-old male, presentation complicated by history of chronic hypertension, migraines, arthritis presents with migraine headache since yesterday.. History was obtained via conversation with patient, chart review. On arrival, patient is afebrile, mildly hypertensive with BP 169/117,, moving all extremities spontaneously. Full physical exam performed and significant for uncomfortable appearing patient with photophobia, no focal neurologic deficits. Differential includes but is not limited to migraine, tension headache, intracranial pathology, hypertensive emergency, hypertensive urgency. Patient was given migraine cocktail including 1 L fluid bolus, 2 g IV magnesium, 25 mg IV Benadryl, 10 mg IV Reglan for symptomatic management and correction of underlying abnormalities. Patient took 1 g of Tylenol and 800 of ibuprofen just prior to arrival. Patient was placed in observation status at 11:20 PM for serial assessments and to preclude a potentially unnecessary admission. On re-evaluation at 12:20 AM, patient reports that the headache has almost completely resolved. He reports that he feels appropriate for discharge. Patient was taken out of observation status at 1220, total time in observation 1 hour. I had a [id number] discussion with patient regarding discharge instructions. The total time involved with discharging patient was less than 30 minutes. Given marked improvement in headache, patient was felt to be appropriate for discharge and outpatient follow-up. Given patient history, exam and workup, patient's presentation most likely represents acute migraine headache. Procedures Risk/Benefits of Procedure(s) Were Explained: Yes Critical Care Critical Care Time Critical Care Time: No
[2023-10-12 23:05] VITALS: BP 169/117; PULSE 94; RESP 20; TEMP 36.8; O2SAT 98; BMI 39.5
[2023-10-12] MEDS: METOCLOPRAMIDE HCL 10MG/2ML VIAL 10 MG IV (23:13)
[2023-10-12] MEDS: MAGNESIUM SULFATE IN WATER 2 GM/50 ML PIGGYBACK IV (23:14)
[2023-10-12] MEDS: 0.9 % SODIUM CHLORIDE 1000ML 1,000 ML 999 ML IV (23:14)
[2023-10-12] MEDS: diphenhydrAMINE 50MG/ML VIAL 25 MG IV (23:14)
[2023-10-13 00:32] VITALS: BP 162/97; PULSE 66; RESP 20; TEMP 36.9; O2SAT 100
== END 2023-10-13 00:33 | disposition home or self-care (01) ==
PROVIDERS: Emergency Provider Emergency Medicine; PCP Family Medicine
DX: G43.909 Migraine, unspecified, not intractable, without status migrainosus (principal); L40.52 Psoriatic arthritis mutilans; I10 Essential (primary) hypertension
CPT/HCPCS: 96361; 96365; 96375; 99285; J3475